=== PATIENT | male | born 1995 | race African-American/Black ===

== ENCOUNTER 2017-09-16 11:07 | Emergency (ER) | payer OTHER | END 2017-09-16 11:50 | disposition home or self-care (01) | LOC: NAV ERS 11:07 | DX: J02.9 Acute pharyngitis, unspecified (principal); K13.0 Diseases of lips | CPT/HCPCS: 87252; 99282 ==

== ENCOUNTER 2018-02-03 23:55 | Emergency (ER) | payer OTHER ==
[2018-02-04] MEDS ORDERED: Azithromycin 250 MG TAB ONE (00:29)
[2018-02-04] MEDS ORDERED: cefTRIAXone\\ROCEPHIN 250 MG VIAL ONE (00:29)
[2018-02-04] MEDS ORDERED: Lidocaine 1% 20 ML MDV ONE (00:29)
[2018-02-04 00:42] LABS: Bilirubin Negative (Negative); Blood, Urine Small (Negative); Clarity Clear (Clear); Glucose, Urine (Dipstick) Negative (Negative); Leukocyte Trace (Negative); Nitrite Negative (Negative); Protein, Urine (Dipstick) Negative (Neg-Trace); Urobilinogen 0.2 mg/dL (0.2-1.0); pH, Urine 6.5 (5.0-9.0)
[2018-02-04 00:45] LABS: Bacteria/HPF Rare-Few HPF (None Seen); Squamous Epithelial 0-3 HPF (0-3)
[2018-02-05 03:48] LABS: Chlamydia by PCR Not Detected (NotDetected); GC by PCR Not Detected (NotDetected)
== END 2018-02-04 00:55 | disposition home or self-care (01) ==
LOC: NAV ERS 23:55
DX: N34.2 Other urethritis (principal)
CPT/HCPCS: 81003; 81015; 87086; 87491; 87591; 96372; J0696; J2001